=== PATIENT | female | born 2005 ===

== ENCOUNTER 2024-07-14 13:06 | Outpatient (CLI) | payer BC, SELFPAY ==
--- NOTE | ~2024-07-14 | MR_ITS ---
EXAMINATION: MR hip RT w con DATE: 07/14/2024 14:49 INDICATION: Right hip pain TECHNIQUE: Magnetic resonance (MR) arthrogram of the right hip was performed following intra-articula r gadolinium contrast injection and without intravenous contrast. Details of the hip joint injection have been dictated separately. Sequences included large [id number] images of the pelvis with PD-we ighted FS FSE, axial T1-weighted FSE and axial and coronal T2-weighted FS FSE. Small field of view of the right hip with axial and coronal T1-weighted FS SE and T2-weighted FS FSE and sagittal T2-weight ed FS FSE. Additional T1-weighted FGRE images in a radial pattern oriented orthogonal to the acetabul ar rim were obtained for evaluation of the labrum. COMPARISON: None. FINDINGS: Bones/labrum/cartilage: Alignment is normal. No fracture, avascular necrosis or pathologic marrow replacing process. Labrum is normal. Articular cartilage is normal. Fluid: Physiologic amount fluid in the left hip. No loose osteochondral bodies in the contrast enhanced righ t hip joint space. No bursitis or other abnormal fluid collections. Soft tissues: Normal and symmetric muscle bulk and signal in the pelvis and visualized proximal thighs. The bilater al iliopsoas, gluteal and proximal hamstring tendons are normal. Limited evaluation of visceral organ s of the pelvis is unremarkable. No pathologically enlarged pelvic/inguinal lymphadenopathy. IMPRESSION: 1. Normal MRI arthrogram of the right hip with no evident labral tear. Reviewed, dictated and finalized at location A.
--- NOTE | ~2024-07-14 | XR_ITS ---
EXAMINATION: XR fl inj hip RT for MR/CT DATE: 07/14/2024 14:09 INDICATION: Right hip pain TECHNIQUE: A time-out was performed to verify the patient's name, date of , and procedure to b e performed. The procedure including the risks, benefits, and alternatives was discussed with the pat ient. Risks discussed included bleeding and infection. The patient understood the risks and agreed to proceed. The skin overlying the right hip joint was prepped and draped in usual sterile fashion. A nesthetic was administered with 1% lidocaine subcutaneously. A 22 G needle was advanced under fluoro scopic guidance into the joint. Injection of 1 mL of Omnipaque 240 confirmed intra-articular positio n of the needle. Subsequently, injectate consisting of 12 mL of 2:1:1 mixture of sterile saline:Omni paque 240:1% lidocaine mixed 200:1 with 529 mg/mL Multihance gadolinium contrast was instilled with intra-articular administration confirmed with intermittent fluoroscopy. The needle was removed and th e entry site was cleaned and dressed. There were no immediate complications. Fluoroscopy exposure ti me was 0.1 minutes. The total number of images was 8. Total DAP was 0.457 Gycm^2 FINDINGS: Real-time fluoroscopy demonstrates the needle in the right hip joint. IMPRESSION: 1. Successful right hip joint injection of a dilute gadolinium contrast mixture for subsequent MRI ar throgram which will be dictated separately. Reviewed, dictated and finalized at location A. IMPRESSION: 1. Successful right hip joint injection of a dilute gadolinium contrast mixture for subsequent MRI arthrogram which will be dictated separately.
== END 2024-07-14 13:07 ==
PROVIDERS: PCP Orthopaedic Surgery; Visit Provider Orthopaedic Surgery
DX: M25.551 Pain in right hip (principal)
CPT/HCPCS: 20610; 73722; 77002; A9577; Q9967